=== PATIENT | male | born 2000 | race American Indian/Alaskan Native ===

== ENCOUNTER 2021-11-09 15:38 | Emergency (ER) | payer OTHER ==
[2021-11-09] MEDS ORDERED: KETOROLAC 30 MG/1 ML INJ IV ONE (15:46)
[2021-11-09] MEDS ORDERED: LIDOCAINE 1%/EPINEPHRINE 1:100,000 VIAL (20 ML) INFILTRATI NR (16:00)
--- NOTE | 2021-11-09 16:14 | XRay Report ---
RIGHT WRIST 3 VIEWS 1548 INDICATION: injury COMPARISON: None available. FINDINGS: No fractures or dislocations are seen. Signer Name: Weston Wilson MD Signed: 11/09/2021 4:09 PM Workstation Name: [id number]
[2021-11-09 16:27] LABS: Hematocrit 49.5 % (35.5-45.6); Hemoglobin 16.2 gm/dl (11.8-15.2); Mean Corpuscular HGB Conc 33 % (32-34); Mean Corpuscular Volume 92 fl (84-94); Platelet Count 290 K/mm3 (140-440); Red Blood Count 5.37 M/mm3 (3.65-5.03); Red Cell Distribution Width 12.3 % (13.2-15.2)
--- NOTE | 2021-11-09 16:38 | Cat Scan Report ---
CT HEAD WITHOUT CONTRAST INDICATION / CLINICAL INFORMATION: closed head injury. TECHNIQUE: All CT scans at this location are performed using CT dose reduction for ALARA by means of automated e xposure control. COMPARISON: None available. FINDINGS: HEMORRHAGE: No evidence of intracranial hemorrhage or extra-axial fluid collection. EXTRA-AXIAL SPACES: Cortical sulci, sylvian fissures and basilar cisterns have an unremarkable appear ance. VENTRICULAR SYSTEM: Developmental asymmetry of the lateral ventricles is noted, right larger than lef t. The third and lateral ventricles are of otherwise normal size and configuration. CEREBRAL PARENCHYMA: No areas of abnormal brain parenchymal attenuation are identified. There is no i ndication of recent infarction. MIDLINE SHIFT OR HERNIATION: There is no mass effect. CEREBELLUM / BRAINSTEM: Brainstem and cerebellum have an unremarkable appearance. MIDLINE STRUCTURES:No abnormalities of the pituitary gland or pineal region are identified. INTRACRANIAL VESSELS:No abnormalities are identified on this noncontrast head CT. ORBITS: visualized portions of the orbits have an unremarkable appearance. SOFT TISSUES of HEAD: No significant abnormality. CALVARIUM: Evaluation of bone windows reveals no abnormalities. PARANASAL SINUSES / MASTOID AIR CELLS: Visualized portions of the paranasal sinuses are free from inf lammatory mucosal disease. Mastoid air cells are normally pneumatized. IMPRESSION: 1. No significant abnormalities identified on head CT without contrast. Signer Name: Nehemiah Galvez MD Signed: 11/09/2021 4:33 PM Workstation Name: [id number]
[2021-11-09 16:39] LABS: Calcium 9.6 mg/dL (8.4-10.2)
--- NOTE | 2021-11-09 16:41 | Cat Scan Report ---
CT MAXILLOFACIAL WITHOUT CONTRAST INDICATION / CLINICAL INFORMATION: facial trauma. TECHNIQUE: All CT scans at this location are performed using CT dose reduction for ALARA by means of automated e xposure control. COMPARISON: None available. FINDINGS: FACIAL BONES: No fracture or other significant abnormality. STOCKHOLDER SPACES:Evaluation of the circuit design engineer space structures reveal no abnormalities. SALIVARY GLANDS: Parotid and submandibular salivary glands have an unremarkable appearance. PARANASAL SINUSES: No significant abnormality. NASAL CAVITY: Incidental note is made of pneumatization of the middle turbinates. Bilateral yadiel bu llosa is associated with expansion of the middle turbinates in this individual. ORBITS: Globes, optic nerves and extraocular muscles have an unremarkable appearance. TEMPORAL BONES:Visualized mastoid air cells and the middle ear cavities are normally pneumatized. VISUALIZED INTRACRANIAL STRUCTURES: No significant abnormality. ADDITIONAL FINDINGS: None. IMPRESSION: 1. No indication of facial fracture or other osseous abnormality. Signer Name: Nehemiah Galvez MD Signed: 11/09/2021 4:37 PM Workstation Name: [id number]
[2021-11-09] MEDS ORDERED: SODIUM CHLORIDE 0.9% 1000 ML 1,000 ML IV ONE (16:45)
--- NOTE | 2021-11-09 16:45 | Cat Scan Report ---
CT CERVICAL SPINE WITHOUT CONTRAST INDICATION / CLINICAL INFORMATION: pain from injury. TECHNIQUE: Axial CT images were obtained through the cervical spine. Sagittal and coronal reformatted images wer e produced. All CT scans at this location are performed using CT dose reduction for ALARA by means of automated exposure control. COMPARISON: None available. FINDINGS: POSTOPERATIVE CHANGE:none ALIGNMENT: Loss of the normal cervical lordosis is noted. No additional abnormalities of alignment ar e identified. VERTEBRAE: No indication of fracture or traumatic subluxation. DISC SPACES: Disc height is normally maintained throughout. DEGENERATIVE CHANGES: None CRANIOCERVICAL JUNCTION:No significant abnormality. SPINAL CANAL: Central spinal canal is adequately maintained throughout. PARASPINAL SOFT TISSUES: No significant abnormality. LUNG APICES: No significant abnormality of visualized lungs. IMPRESSION: 1. No indication of fracture, traumatic subluxation or significant degenerative change. Signer Name: Nehemiah Galvez MD Signed: 11/09/2021 4:40 PM Workstation Name: [id number]
[2021-11-09] MEDS ORDERED: SODIUM CHLORIDE IRRI 500 ML 500 ML IR ONE (16:52)
[2021-11-09 17:55] LABS: Total Cells Counted 100
--- NOTE | 2021-11-09 17:55 | Emergency Department Report ---
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 (3.6-5.0) mmol/L Chloride (98-107) mmol/L Carbon Dioxide (22-30) mmol/L Anion Gap mmol/L BUN (9-20) mg/dL Creatinine (0.8-1.3) mg/dL Estimated GFR ml/min BUN/Creatinine Ratio % Glucose (75-100) mg/dL POC Glucose 85 (70-105) mg/dL Calcium (8.4-10.2) mg/dL Urine Color Yellow (Yellow) Urine Turbidity Clear (Clear) Urine pH 6.0 (5.0-7.0) Ur Specific [place] 1.014 (1.003-1.030) Urine Protein 100 mg/dl (Negative) mg/dL Urine Glucose (UA) 150 (Negative) mg/dL Urine Ketones Tr (Negative) mg/dL Urine Blood Mod (Negative) Urine Nitrite Neg (Negative) Urine Bilirubin Neg (Negative) Urine Urobilinogen < 2.0 (<2.0) mg/dL Ur Leukocyte Esterase Neg (Negative) Urine WBC (Auto) 1.0 (0.0-6.0) /HPF Urine RBC (Auto) 1.0 (0.0-6.0) /HPF Urine Mucus Few /HPF Salicylates (2.8-20.0) mg/dL Urine Opiates Screen Negative Urine Methadone Screen Negative Acetaminophen (10.0-30.0) ug/mL Ur Barbiturates Screen Negative Ur Phencyclidine Scrn Negative Ur Amphetamines Screen Negative U Benzodiazepines Scrn Positive Urine Cocaine Screen Negative U Marijuana (THC) Screen Positive Drugs of Abuse Note Disclamer Plasma/Serum Alcohol (0-0.07) % Critical care attestation.: If time is entered above; I have spent that time in minutes in the direct care of this critically ill patient, excluding procedure time. ED Disposition Is pt being admited?: No Does the pt Need Aspirin: No
[2021-11-09 17:56] LABS: Basophils % (Manual) 0 % (0.0-1.8); Eosinophils % (Manual) 0 % (0.0-4.3); Platelet Estimate Consistent w Auto; RBC Morphology Normal
[2021-11-09] MEDS ORDERED: levETIRAcetam 1000 MG/NS 0.75% 1,000 MG/100 ML BAG IV ONE (18:27)
[2021-11-09 19:24] LABS: Bilirubin,Urine NEG (Negative); Blood,Urine MOD (Negative); Color,Urine Yellow (Yellow); Mucus,Urine FEW /HPF; Urobilinogen,Urine < 2.0 mg/dL (<2.0)
[2021-11-09 19:33] LABS: Amphetamine Screen,Urine Negative; Cocaine Screen,Urine Negative; Methadone Screen,Urine Negative; Opiate Screen,Urine Negative
[2021-11-09 19:46] LABS: Benzodiazepines Screen,Urine Positive; Cannabinoid Screen,Urine Positive
[2021-11-09 19:57] LABS: Hematocrit 47.7 % (35.5-45.6); Hemoglobin 15.2 gm/dl (11.8-15.2); Mean Corpuscular HGB Conc 32 % (32-34); Mean Corpuscular Volume 91 fl (84-94); Platelet Count 241 K/mm3 (140-440); Red Blood Count 5.26 M/mm3 (3.65-5.03); Red Cell Distribution Width 12.3 % (13.2-15.2)
[2021-11-09 20:29] LABS: BUN/Creatinine Ratio 9; Blood Urea Nitrogen 12 mg/dL (9-20); Calcium 9.7 mg/dL (8.4-10.2); Hemolysis Index 27
[2021-11-09] MEDS ORDERED: DEXTROSE 10% *Hypoglycemia IV PRN (21:10)
[2021-11-09] MEDS ORDERED: SODIUM CHLORIDE 0.9% 1000 ML 2,000 ML IV ONE (21:13)
[2021-11-09 21:52] LABS: Basophils % (Manual) 0 % (0.0-1.8); Total Cells Counted 100
[2021-11-09 21:53] LABS: Platelet Estimate Consistent w Auto; RBC Morphology Normal
[2021-11-10 00:06] VITALS: BP 127/74
--- NOTE | 2021-11-10 14:27 | Electrocardiograph Report ---
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
== END 2021-11-10 ==
LOC: ED 15:38
DX: S01.01XA Laceration without foreign body of scalp, initial encounter (principal); S09.90XA Unspecified injury of head, initial encounter; G40.909 Epilepsy, unspecified, not intractable, without status epilepticus; T75.4XXA Electrocution, initial encounter; E11.9 Type 2 diabetes mellitus without complications; X58.XXXA Exposure to other specified factors, initial encounter; Y93.89 Activity, other specified; Y92.89 Other specified places as the place of occurrence of the external cause; Y99.8 Other external cause status
CPT/HCPCS: 12004; 36415; 70450; 70486; 72125; 73110; 80048; 80307; 81001; 82962; 85007; 85025; 93005; 96361; 96374; 96375; 99285; J1885; J1953; J3490; J7030; 80320; Q0162; G0480